=== PATIENT | male | born 1990 | race African-American/Black ===

== ENCOUNTER 2020-03-10 00:48 | Emergency (ER) | payer OTHER ==
[~2020-03-10] VITALS: Ht 193 cm; Wt 127.0 kg
[2020-03-10] MEDS ORDERED: DECADRON4 MG PO (08:27)
[2020-03-10] MEDS ORDERED: KEPPRA750 MG PO (08:27)
== END 2020-03-10 09:55 | disposition home or self-care (01) ==
LOC: ER 00:48
DX: G40.802 Other epilepsy, not intractable, without status epilepticus (principal); U07.1 COVID-19; R53.81 Other malaise